=== PATIENT | male | born 1990 | race Caucasian/White ===

== ENCOUNTER 2023-11-26 19:01 | Emergency (ER) | payer OTHER ==
[2023-11-26] MEDS ORDERED: fentaNYL 50 mcg/mL 1 mL Vial ONE (20:10)
== END 2023-11-26 20:20 | disposition home or self-care (01) ==
LOC: ERS 19:01
DX: S89.91XA Unspecified injury of right lower leg, initial encounter (principal); W55.22XA Struck by cow, initial encounter
CPT/HCPCS: 96372; J3010